=== PATIENT | female | born 1995 | race Caucasian/White ===

== ENCOUNTER 2018-09-16 01:31 | Emergency (ER) | payer MEDICAID ==
[2018-09-16 02:06] LABS: BILIRUBIN,URINE NEGATIVE (NEGATIVE); GLUCOSE, URINE (UA) >=1000 mg/dL (NEGATIVE); KETONES,URINE (UA) TRACE mg/dL (NEGATIVE); LEUKOCYTE ESTERASE, URINE NEGATIVE (NEGATIVE); NITRITE,URINE NEGATIVE (NEGATIVE); OCCULT BLOOD,URINE LARGE (NEGATIVE); PROTEIN,URINE NEGATIVE (NEGATIVE); UROBILINOGEN,URINE 0.2 (NORMAL) E.U./dL (NORMAL)
[2018-09-16 02:09] LABS: CLARITY,URINE CLEAR (CLEAR); HCG UR QUAL NEGATIVE
[2018-09-16 02:12] LABS: BACTERIA,URINE None Seen /HPF (None Seen); SQUAMOUS EPITHELIAL CELL,UR MOD Squamous (<= Few)
--- NOTE | 2018-09-16 02:50 | ED Physician Documentation ---
PD HPI FEMALE - Stated complaint Stated Complaint: ABD PX - Chief complaint Chief Complaint: Abd Pain - History obtained from History obtained from: Patient - History of Present Illness Timing - onset: How many months ago (4) Timing - duration: Months (4 months of lower abd/pelvic cramping pains after getting IUD placed. States has spotting and cramps, until the past few days, when bleeding increased, with few pads daily. Denies vaginal discharge. She is 4 months post . She has just moved here from [facility].) Timing - details: Gradual onset, Still present, Waxing and waning Associated symptoms: Vaginal bleeding. No: Fever, Back pain, Vaginal discharge, Genital sore/lesion, Urinary frequency Review of Systems Constitutional: denies: Fever, Chills Nose: denies: Rhinorrhea / runny nose, Congestion Throat: denies: Sore throat Respiratory: denies: Cough GI: denies: Abdominal Pain, Nausea, Vomiting, Diarrhea : reports: Control (IUD). 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 : None HEENT: None Psych: None Musculoskeletal: None Derm: None - Past Surgical History Past Surgical History: No /SKIVER MACHINE OPERATOR: Other - Present Medications Home Medications: Ambulatory Orders Medication Instructions Recorded Confirmed Penicillin V Potassium 500 mg PO QID #40 tablet 08/10/16 Hydrocodone/Acetaminophen [[place] 1 each PO Q6H PRN #15 tablet 09/16/18 5-325 Tablet] Naproxen 375 mg PO BID #20 tablet 09/16/18 Norethindrone 0.35 mg PO DAILY #28 tablet 09/16/18 - Allergies Allergies/Adverse Reactions: Allergies Allergy/AdvReac Type Severity Reaction Status Date / Time No Known Drug Allergies Allergy Verified 09/16/18 01:44 - Social History Does the pt smoke?: No Smoking Status: Never smoker Does the pt drink ETOH?: Yes Does the pt have substance abuse?: No - Immunizations Immunizations are current?: Yes - POLST Patient has POLST: No PD ED PE NORMAL - Vitals Vital signs reviewed: Yes - General General: Alert and oriented X 3, Well developed/nourished, Other (appears uncomrotable due to pelvic/low abd pains. ) - HEENT HEENT: Pharynx benign - Neck Neck: Supple, no meningeal sign, No adenopathy - Cardiac Cardiac: No murmur. No: RRR (regular rhythm but is tachycardic. ) - Respiratory Respiratory: Clear bilaterally - Abdomen Abdomen: Normal bowel sounds, Soft, Non distended, No organomegaly, Other (tender RLQ with local guarding. ) - Female Female : Deferred Results - Vitals Vitals: Vital Signs - 24 hr 09/16/18 09/16/18 09/16/18 01:41 03:46 05:45 Temperature 36.9 C Heart Rate 120 H 104 H 101 H Respiratory 17 16 16 Rate Blood Pressure 141/92 H 128/91 H 153/89 H O2 Saturation 96 100 97 Oxygen O2 Source Room air - Labs Labs: Laboratory Tests 09/16/18 09/16/18 01:59 03:35 WBC 11.0 H RBC 4.92 Hgb 13.4 Hct 39.5 MCV 80.4 L MCH 27.2 MCHC 33.9 RDW 14.0 Plt Count 255 MPV 6.8 L Neut # (Auto) 7.2 H Lymph # (Auto) 2.9 [place] # (Auto) 0.6 Eos # (Auto) 0.2 Baso # (Auto) 0.1 Absolute Nucleated RBC 0.01 Nucleated RBC % 0.1 Urine Color YELLOW Urine Clarity CLEAR Urine pH 6.0 Ur Specific [place] 1.020 Urine Protein NEGATIVE Urine Glucose (UA) >=1000 H Urine Ketones TRACE Urine Occult Blood LARGE H Urine Nitrite NEGATIVE Urine Bilirubin NEGATIVE Urine Urobilinogen 0.2 (NORMAL) Ur Leukocyte Esterase NEGATIVE Urine RBC 6-10 H Urine WBC 0-3 Ur Squamous Epith Cells MOD Squamous H Urine Bacteria None Seen Ur Microscopic Review INDICATED Urine Culture Comments NOT INDICATED Urine HCG, Qual NEGATIVE - Rads (name of study) pelvic U/S Radiology: Prelim report reviewed (right ovarian cyst 3x5 cm. No free fluid. IUD in place. ) PD MEDICAL DECISION MAKING - ED course Complexity details: reviewed results, re-evaluated patient (pain improved with meds. She does have a cyst, so could be some of the cause of the pain. Has had some bleeding regularly since IUD, so consider supplement progesterone. To follow up with SKIVER MACHINE OPERATOR locally. ), considered differential, d/w patient Departure - Departure Disposition: 01 Home, Self Care Clinical Impression: Dysfunctional uterine bleeding, IUD (intrauterine device) in place Ovarian cyst Qualifiers: Laterality: right Qualified Code(s): N83.201 - Unspecified ovarian cyst, right side Condition: Stable Record reviewed to determine appropriate education?: Yes Instructions: ED Bleed Irregular Vaginal, ED Cyst Ovarian Follow-Up: [facility] [Provider Group] Prescriptions: Hydrocodone/Acetaminophen [[place] 5-325 Tablet] 1 each PO Q6H PRN #15 tablet PRN Reason: Pain Naproxen 375 mg PO BID #20 tablet Norethindrone 0.35 mg PO DAILY #28 tablet Comments: You do have a 3 x 5 cm cyst on the right. This may be causing some of your pain. There is no signs of internal bleeding or rupture of the cyst. The ovary has good blood flow. The IUD is in place by ultrasound. The bleeding from that may be related to inadequate hormone from it or can be just from irritation. I would suggest some anti-inflammatory such as naproxen twice daily with food for the next 10 days. Also a low-dose progesterone hormone daily to supplement that from the IUD. See how that does over the next week or so. Add Tylenol or hydrocodone if needed for pain. Meanwhile call the gynecology office on Tuesday for an appointment for this coming week and follow-up with them. Discharge Date/Time: 09/16/18 05:46
[2018-09-16] MEDS ORDERED: IBUPROFEN 600 MG TABLET PO STA (03:17)
[2018-09-16] MEDS ORDERED: HYDROcod/ACETAM 5/325 MG TABLET PO STA (03:17)
[2018-09-16 03:39] LABS: BASOPHILS # (AUTO) 0.1 10^3/uL (0.0-0.1); BASOPHILS % (AUTO) 1.3 %; EOSINOPHILS # (AUTO) 0.2 10^3/uL (0.0-0.7); HGB - HEMOGLOBIN 13.4 g/dL (12.0-16.0); LYMPHOCYTES # (AUTO) 2.9 10^3/uL (1.5-3.5); LYMPHOCYTES % (AUTO) 26.4 %; MEAN CORPUSCULAR HEMOGLOBIN 27.2 pg (27.0-31.0); MEAN CORPUSCULAR HGB CONC 33.9 g/dL (32.0-36.0); MEAN CORPUSCULAR VOLUME 80.4 fL (81.0-99.0); MEAN PLATELET VOLUME 6.8 fL (7.9-10.8); MONOCYTES # (AUTO) 0.6 10^3/uL (0.0-1.0); MONOCYTES % (AUTO) 5.5 %; NEUTROPHILS # (AUTO) 7.2 10^3/uL (1.5-6.6); NEUTROPHILS % (AUTO) 64.8 %; PLT - PLATELET COUNT 255 10^3/uL (130-450); RED BLOOD COUNT 4.92 10^6/uL (4.20-5.40)
--- NOTE | 2018-09-16 04:56 | Ultrasound Report ---
Reason: pelvic pain; has IUD. pain mostly right Procedure Date: 09/16/2018 Accession Number: [id number] / [id number] Procedure: US - Pelvic w/Transvag+Doppler Ltd CPT Code: FULL RESULT: EXAM: PELVIC ULTRASOUND EXAM DATE: 09/16/2018 04:08 AM. CLINICAL HISTORY: Pelvic pain; has IUD. Pain mostly right. COMPARISON: None. TECHNIQUE: Realtime transabdominal pelvic scan performed to identify the uterus and adnexa and as an overview of other pelvic structures, followed by transvaginal scan to provide greater detail of the uterus and adnexa, with static image documentation. FINDINGS: Uterus: 8.4 x 3.1 x 5.3 cm, volume 71 cc. Anteverted position. Normal overall size and echotexture. Masses: None. Endometrium: 8 mm. IUD in expected position. Cervix: Unremarkable. Right Ovary: 6.1 x 4.9 x 5.3 cm, volume 82 cc. Dominant cyst measuring 3.4 x 5.3 x 4.5 cm. Blood flow seen in the ovary. Left Ovary: 3.1 x 2.7 x 3.4 cm, volume 14 cc. Normal echotexture and blood flow. Free Fluid: None. Other: None. IMPRESSION: 1. IUD in expected position. 2. Enlarged right ovary measuring 82 cc with dominant cyst measuring 3.4 x 5.3 x 4.5 cm. No torsion seen. RADIA
[2018-09-16 05:46] VITALS: BP 153/89
== END 2018-09-16 05:46 | disposition home or self-care (01) ==
LOC: ED 01:31
DX: N93.8 Other specified abnormal uterine and vaginal bleeding (principal); N83.201 Unspecified ovarian cyst, right side; Z97.5 Presence of (intrauterine) contraceptive device
CPT/HCPCS: 36415; 76830; 76856; 81001; 81025; 85025; 93976; 99283; A9270; 81003; 87086

== ENCOUNTER 2018-09-28 16:14 | Emergency (ER) | payer MEDICAID ==
[2018-09-28 17:04] LABS: BASOPHILS # (AUTO) 0.1 10^3/uL (0.0-0.1); BASOPHILS % (AUTO) 0.9 %; EOSINOPHILS # (AUTO) 0.2 10^3/uL (0.0-0.7); EOSINOPHILS % (AUTO) 1.6 %; HGB - HEMOGLOBIN 14.2 g/dL (12.0-16.0); LYMPHOCYTES # (AUTO) 3.2 10^3/uL (1.5-3.5); LYMPHOCYTES % (AUTO) 28.8 %; MEAN CORPUSCULAR HEMOGLOBIN 26.4 pg (27.0-31.0); MEAN CORPUSCULAR HGB CONC 32.6 g/dL (32.0-36.0); MEAN CORPUSCULAR VOLUME 80.8 fL (81.0-99.0); MEAN PLATELET VOLUME 6.6 fL (7.9-10.8); MONOCYTES # (AUTO) 0.6 10^3/uL (0.0-1.0); MONOCYTES % (AUTO) 5.7 %; NEUTROPHILS # (AUTO) 7.1 10^3/uL (1.5-6.6); PLT - PLATELET COUNT 301 10^3/uL (130-450); RED BLOOD COUNT 5.39 10^6/uL (4.20-5.40); RED CELL DISTRIBUTION WIDTH 14.1 % (12.0-15.0); WHITE BLOOD COUNT 11.3 x10^3/uL (4.8-10.8)
[2018-09-28 17:19] LABS: BILIRUBIN,TOTAL 0.3 mg/dL (0.2-1.0); CALCIUM 9.4 mg/dL (8.5-10.3); CREATININE 0.6 mg/dL (0.4-1.0)
[2018-09-28 19:38] VITALS: BP 137/90
== END 2018-09-28 20:25 | disposition left against medical advice (07) ==
LOC: ED 16:14
DX: R10.31 Right lower quadrant pain (principal); N83.201 Unspecified ovarian cyst, right side; Z53.21 Procedure and treatment not carried out due to patient leaving prior to being seen by health care provider
CPT/HCPCS: 36415; 80053; 83690; 85025

== ENCOUNTER 2019-01-31 08:00 | Outpatient (CLI) | payer MEDICAID | END 2019-01-31 23:59 | disposition home or self-care (01) | LOC: LAB.R 08:00 | PROVIDERS: ATTEND Registered Nurse | DX: B37.3 Candidiasis of vulva and vagina (principal) | CPT/HCPCS: 87480; 87491; 87510; 87591; 87660 ==

== ENCOUNTER 2019-08-20 22:50 | Emergency (ER) | payer MEDICAID ==
--- NOTE | 2019-08-20 23:45 | ED Physician Documentation ---
PD HPI URI - Stated complaint Stated Complaint: WEAKNESS/COUGH - Chief complaint Chief Complaint: Heent - History obtained from History obtained from: Patient - History of Present Illness Timing - onset: How many weeks ago (1) Timing duration: Weeks (1) Timing details: Gradual onset, Still present (worse symptoms with persistent cough but now feverish and with sinus drainage and purulence.) Associated symptoms: Fever, Rhinorrhea, Sinus pain, Sore throat, Dry cough Contributing factors: No: Sick contact, Travel, Immunocompromised Similar symptoms before: Has not had sx before Review of Systems Constitutional: reports: Chills, Myalgias. denies: Fever Nose: reports: Rhinorrhea / runny nose, Congestion, Sinus pressure / pain Cardiac: denies: Chest pain / pressure Respiratory: reports: Cough. 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 : None HEENT: None Psych: None Musculoskeletal: None Derm: None - Past Surgical History Past Surgical History: No /SPIRITUAL CARE COORDINATOR: Other - Present Medications Home Medications: Ambulatory Orders Medication Instructions Recorded Confirmed Penicillin V Potassium 500 mg PO QID #40 tablet 08/10/16 Hydrocodone/Acetaminophen [[place] 1 each PO Q6H PRN #15 tablet 09/16/18 5-325 Tablet] Naproxen 375 mg PO BID #20 tablet 09/16/18 Norethindrone 0.35 mg PO DAILY #28 tablet 09/16/18 Albuterol Sulf [Ventolin Hfa 1 - 2 puffs INH Q4HR PRN #1 inhaler 08/21/19 Inhaler] Amoxicillin 500 mg PO TID #21 capsule 08/21/19 Benzonatate [Tessalon Perle] 100 mg PO TID PRN #25 capsule 08/21/19 dexAMETHasone [Decadron] 4 mg PO DAILY #5 tablet 08/21/19 - Allergies Allergies/Adverse Reactions: Allergies Allergy/AdvReac Type Severity Reaction Status Date / Time kiwi AdvReac Unknown Verified 08/20/19 23:59 - Social History Does the pt smoke?: No Smoking Status: Never smoker Does the pt drink ETOH?: Yes Does the pt have substance abuse?: No - Immunizations Immunizations are current?: Yes - POLST Patient has POLST: No PD ED PE NORMAL - Vitals Vital signs reviewed: Yes - General General: Alert and oriented X 3, No acute distress, Well developed/nourished - HEENT HEENT: Ears normal, Pharynx benign - Neck Neck: Supple, no meningeal sign, No adenopathy - Cardiac Cardiac: RRR, No murmur - Respiratory Respiratory: Clear bilaterally - Back Back: No CVA TTP - Derm Derm: Normal color, Warm and dry, No rash - Neuro Neuro: Alert and oriented X 3 Eye Opening: Spontaneous Motor: Obeys Commands Verbal: Oriented GCS Score: 15 Results - Vitals Vitals: Oxygen O2 Source Room air - Labs Labs: Laboratory Tests 08/20/19 23:43 Influenza A (Rapid) Negative Influenza B (Rapid) Negative PD MEDICAL DECISION MAKING - ED course Complexity details: considered differential (seems URI and now with sinusitis type symptoms.), d/w patient Departure - Departure Disposition: 01 Home, Self Care Clinical Impression: Upper respiratory infection Qualifiers: URI type: unspecified URI Qualified Code(s): J06.9 - Acute upper respiratory infection, unspecified Condition: Stable Record reviewed to determine appropriate education?: Yes Instructions: ED Upper Resp Infec Abx Tx Follow-Up: Sofiya Keenan MD [Primary Care Provider] - Prescriptions: Albuterol Sulf [Ventolin Hfa Inhaler] 1 - 2 puffs INH Q4HR PRN #1 inhaler PRN Reason: Shortness Of Air/Wheezing Amoxicillin 500 mg PO TID #21 capsule Benzonatate [Tessalon Perle] 100 mg PO TID PRN #25 capsule PRN Reason: Cough dexAMETHasone [Decadron] 4 mg PO DAILY #5 tablet Comments: Stay well-hydrated. Tylenol or ibuprofen as needed for fevers or pains. Use the albuterol inhaler 2 puffs 4 times a day for the next 7 to 10 days and extra times as needed. Decadron steroid daily for 5 more days to decrease inflammation to the sinuses and bronchials. This will help with symptoms. Add Tessalon if needed for cough. Your symptoms are commonly caused by viral illnesses. However yours is a little bit longer than expected and so consideration would be for a secondary bacterial infection. With that in mind we will use some amoxicillin antibiotics as well. Hopefully amongst all the treatments above, there will be improvement over the next several days. There may be some level of cough that persists for even week or 2. Discharge Date/Time: 08/21/19 01:25
[2019-08-21] MEDS ORDERED: ALBUTEROL NEB 2.5 MG/3 ML INH STA (00:09)
[2019-08-21] MEDS ORDERED: AMOXICILLIN 250 MG CAPSULE PO STA (00:10)
[2019-08-21] MEDS ORDERED: CHERRY SYRUP 10 ML UDC PO ONE (00:10)
[2019-08-21] MEDS ORDERED: BENZONATATE 100 MG CAPSULE PO STA (00:10)
[2019-08-21] MEDS ORDERED: DEXAMETHASONE 10 MG/ML VIAL PO STA (00:10)
[2019-08-21] MEDS ORDERED: ACETAMINOPHEN 325 MG TABLET PO STA (00:11)
[2019-08-21 01:18] VITALS: BP 154/104
== END 2019-08-21 01:25 | disposition home or self-care (01) ==
LOC: ED 22:50
DX: J06.9 Acute upper respiratory infection, unspecified (principal)
CPT/HCPCS: 87275; 87276; 94640; 94664; 99283; A9270

== ENCOUNTER 2023-03-26 01:08 | Outpatient (CLI) | payer MEDICAID | END 2023-03-26 01:09 | disposition critical access hospital (66) | LOC: EMS 01:08 | DX: O46.90 Antepartum hemorrhage, unspecified, unspecified trimester (principal) | CPT/HCPCS: A0425; A0429; A0999 ==

== ENCOUNTER 2023-03-26 01:23 | Emergency (ER) | payer MEDICAID ==
[2023-03-26] MEDS ORDERED: KETOROLAC 60 MG/2 ML VIAL IM STA (02:02)
[2023-03-26 02:44] LABS: BASOPHILS # (AUTO) 0.1 10^3/uL (0.0-0.1); BASOPHILS % (AUTO) 0.4 %; EOSINOPHILS # (AUTO) 0.3 10^3/uL (0.0-0.7); EOSINOPHILS % (AUTO) 2.2 %; HCT - HEMATOCRIT 35.5 % (37.0-47.0); HGB - HEMOGLOBIN 12.2 g/dL (12.0-16.0); LYMPHOCYTES # (AUTO) 3.2 10^3/uL (1.5-3.5); MEAN CORPUSCULAR HEMOGLOBIN 28.9 pg (27.0-31.0); MEAN CORPUSCULAR HGB CONC 34.4 g/dL (32.0-36.0); MEAN CORPUSCULAR VOLUME 84.1 fL (81.0-99.0); MEAN PLATELET VOLUME 8.6 fL (7.9-10.8); MONOCYTES % (AUTO) 7.1 %; NEUTROPHILS # (AUTO) 9.4 10^3/uL (1.5-6.6); NEUTROPHILS % (AUTO) 66.8 %; PLT - PLATELET COUNT 268 10^3/uL (130-450); RED BLOOD COUNT 4.22 10^6/uL (4.20-5.40); RED CELL DISTRIBUTION WIDTH 13.3 % (12.0-15.0)
[2023-03-26 03:11] LABS: ALBUMIN 3.1 g/dL (3.2-5.5); ALBUMIN/GLOBULIN RATIO 0.9 (1.0-2.2); BILIRUBIN,TOTAL 0.4 mg/dL (0.2-1.0); CALCIUM 8.7 mg/dL (8.5-10.3); CREATININE 0.5 mg/dL (0.4-1.0); POTASSIUM 4.3 mmol/L (3.5-5.0); TOTAL PROTEIN 6.5 g/dL (6.7-8.2)
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
[2023-03-26 03:37] VITALS: BP 135/101
== END 2023-03-26 03:35 | disposition home or self-care (01) ==
LOC: EDUNIT# → ED 01:23
DX: Z33.2 Encounter for elective termination of pregnancy (principal)
CPT/HCPCS: 36415; 80053; 83690; 84702; 85025; 96372; 99282; 99283

== ENCOUNTER 2023-11-20 16:48 | Outpatient (CLI) | payer MEDICAID, OTHER | END 2023-11-20 16:49 | disposition critical access hospital (66) | LOC: EMS 16:48 | DX: S01.81XA Laceration without foreign body of other part of head, initial encounter (principal); Y00.XXXA Assault by blunt object, initial encounter; Y92.009 Unspecified place in unspecified non-institutional (private) residence as the place of occurrence of the external cause | CPT/HCPCS: A0425; A0429; A0999 ==

== ENCOUNTER 2023-11-20 17:08 | Emergency (ER) | payer MEDICAID, OTHER ==
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
[2023-11-20] MEDS: oxyCODONE 5 MG TABLET PO STA (17:56)
[2023-11-20] MEDS: ONDANSETRON ODT 4 MG TABLET TL STA (17:56)
[2023-11-20 19:19] VITALS: BP 127/77; O2SAT 100
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
== END 2023-11-20 19:14 | disposition home or self-care (01) ==
LOC: EDUNIT# → ED 17:08
DX: S09.90XA Unspecified injury of head, initial encounter (principal); S01.81XA Laceration without foreign body of other part of head, initial encounter; Y00.XXXA Assault by blunt object, initial encounter; Y92.009 Unspecified place in unspecified non-institutional (private) residence as the place of occurrence of the external cause
CPT/HCPCS: 12011; 70450; 99283; 99284; A9270; Q0162